=== PATIENT | male | born 2005 | race Asian ===

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

== ENCOUNTER 2024-05-05 10:09 | Emergency (ER) | payer OTHER, SELFPAY ==
[2024-05-05 10:18] VITALS: BP 125/79; PULSE 80; RESP 14; TEMP 37.2; O2SAT 97; BMI 25.8
--- NOTE | 2024-05-05 11:07 | XR_ITS ---
Patient: ZHANG CEVALLOS Facility:?[facility] Patient ID:?[id number] Site Patient ID:?[id number]. Site :?[id number] Study:?XRay-Chest 2 VIEWS-05/05/2024 11:22:56 AM Ordering Physician:?LUCIANO VAZ Final Report: INDICATION: Persistent cough, difficulty breathing. TECHNIQUE: Chest 2 views. COMPARISON: X-ray chest July 2023 FINDINGS/ IMPRESSION: No acute cardiopulmonary process. No focal consolidation, effusion, pneumothorax. Cardiac size is within normal limit without pulmonary edema. No acute osseous findings. Dictated by Gisele Carmona MD @ 05/05/2024 11:45:05 AM Signed by:?Gisele Carmona MD @05/05/2024 11:45:05 AM (Electronic Signature)
[2024-05-05 11:08] LABS: PCR FLU A Negative PCR FLU A (Negative); PCR FLU B Negative PCR FLU B (Negative); PCR RSV Negative PCR RSV (Negative); SARS PCR* Negative SARS-CoV-2 (Negative)
--- NOTE | 2024-05-05 11:41 | ED.GENADULT ---
HPI - General Adult General Time Seen by Provider: 11:41 Date Seen: 05/05/24 Chief complaint: Cough Stated complaint: shortness of breath/cough Time Seen by Provider: 05/05/24 11:30 Source: patient and RN notes reviewed Mode of arrival: ambulatory Limitations: no limitations History of Present Illness HPI narrative: This patient is coming in with concern of coughing and sinus issues. This has been ongoing since he came to college in February. He has been using albuterol, Symbicort, Flonase, budesonide nasal rinses, nasal rinses, oral antihistamines. He has had prednisone twice, he was on amoxicillin and he felt his sinuses did clear while he was on the amoxicillin. He feels like he has not been able to breathe through his nose, is getting postnasal drainage. He has basically had chronic symptoms since coming up to college. He does have a history of seasonal allergies, they did attempt to do immune therapy and he had anaphylaxis twice. He ended up quitting the therapy due to the anaphylaxis. He has a dry a chronic cough, feels like the cough is maybe a little worse than the sinuses at this time. No definite acute worsening or evidence of new definite illness. He has had a history of a sinus surgery before. His history does state that he has asthma but he relays that when they do the pulmonary function testing he is normal but notes that he gets significant chest symptoms whenever he gets ill. Related Data Home Medications ?Medication ?Instructions ?Recorded ?Confirmed albuterol 90 mcg/actuation aerosol mcg inhalation 03/27/23 05/07/24 inhaler azelastine 137 mcg (0.1 %) nasal 137 mcg intranasal BID 03/27/23 05/07/24 spray budesonide-formoterol HFA 80 1 inh inhalation BID 03/27/23 05/07/24 mcg-4.5 mcg/actuation aerosol inhaler (Breyna) fluticasone propionate 50 1 spray intranasal DAILY PRN 03/27/23 05/07/24 mcg/actuation nasal spray,suspension (24 Hour Allergy Relief) Previous Rx's ?Medication ?Instructions ?Recorded azithromycin 250 mg tablet See Rx Instructions PO .COMPLEX #6 05/05/24 tabs codeine 10 mg-guaifenesin 100 mg/5 5 ml PO HS PRN #120 mL 05/05/24 mL oral liquid amoxicillin 875 mg-potassium 1 tab PO BID #20 tabs 05/07/24 clavulanate 125 mg tablet Allergies Allergy/AdvReac Type Severity Reaction Status Date / Time No Known Drug Allergies Allergy Verified 05/07/24 14:21 Review of Systems Status of ROS: Reports: 6 or more systems reviewed and unremarkable except as noted in History and below [facility] Medical History COVID-19 ?U07.1 - COVID-19 (ICD-10) Social History Smoking Status: Never smoker Do you use any of these nicotine containing products: None Second hand tobacco smoke exposure: No How often do you have a drink containing alcohol: never How often do you have six or more drinks on one occasion: Never AUDIT-C Alcohol total score: 0 Non-prescribed substance use: denies use service: No Exam Const: Vital Signs, click to edit/add: Vital Signs - 24 hr 05/05/24 10:18 Temperature 98.9 F Pulse Rate [Pulse Oximeter] 80 Respiratory Rate 14 Blood Pressure [Ri ght Upper Arm] 125/79 Pulse Oximetry 97 Oxygen Delivery Me thod Room Air This 19-year-old male is alert, interactive, no apparent distress. He does have intermittent harsh sound in dry cough. He is able to speak in complete sentences, voice is normal. Pupils equal round, sclera clear. TMs canals the out hemotympanum, no evidence of infection, normal translucent membranes. Anterior nares appear normal, does look like septum maybe more rightward. The nasal mucosa does not look to have any significant abnormalities to me. Oropharynx normal. No X supple, no adenopathy. Lungs are clear, no wheezing or crackles, no tachypnea, seems to have normal breath sounds. CV regular rate and rhythm, no murmur. Documenting provider has reviewed patient's vital signs: yes Course Course ED Course: Patient had a triple viral swab collected by nursing staff on arrival, chest x-ray has been done, it is awaiting radiology over read to rule out pneumonia. On my preliminary review I do not see any evidence of acute infection. Have discussed with this patient given his symptoms EM and he did bring up seen ENT, would consider doing sinus CT to rule out underlying sinus pathology. Would like to proceed with that I think it is reasonable. Rather than just giving further antibiotics and steroids, I do think we need to try to figure out exactly what is wrong with him. Reevaluation(s) Time of Reevaluation #1: 13:19 Reevaluation #1: Have reviewed his CT of his sinuses, his normal chest x-ray, negative triple viral swab. He just came off prednisone yesterday, did not feel like it really helped. He felt like his sinuses did better while he was on antibiotics. His cough is maybe bothering him more now than anything, not sleeping. He would like to see ENT, he has had teammates that of seen our ENT and have helped them. I will provide that phone number for him to contact. Patient does describe some chronic symptoms, reviewed that were really out of treatment realm for chronic pulmonary and sinus symptoms. He may need to go back to pulmonology. Sometimes patients can just get some post inflammatory cough. We did bring up pertusses, he would like to treat for this and test. His lungs are clear, he does just have this harsh cough that comes back intermittently, sounds dry. We can do pertusses testing, treat with Z-Aiden, send some Robitussin with codeine to help him with sleep. We went over risks benefits and side effects of this medicine as well as contraindications to alcohol and other substance use will using. Vital Signs Vital signs: Initial Vital Signs Temperature 98.9 F 05/05/24 10:18 Temperature Source Temporal Artery Scan 05/05/24 10:18 Pulse Rate 80 05/05/24 10:18 Pulse Rhythm Regular 05/05/24 10:18 Respiratory Rate 14 05/05/24 10:18 Blood Pressure 125/79 05/05/24 10:18 Blood Pressure Mean 94 05/05/24 10:18 Blood Pressure Position Sitting 05/05/24 10:18 Pulse Oximetry 97 05/05/24 10:18 Oxygen Delivery Method Room Air 05/05/24 10:18 Vital Signs Temperature 98.9 F 05/05/24 10:18 Pulse Rate 80 05/05/24 10:18 Respiratory Rate 14 05/05/24 10:18 Blood Pressure 125/79 05/05/24 10:18 Pulse Oximetry 97 05/05/24 10:18 Oxygen Delivery Method Room Air 05/05/24 10:18 Temperature 98.9 F 05/05/24 10:18 Pulse Rate 80 05/05/24 10:18 Respiratory Rate 14 05/05/24 10:18 Blood Pressure 125/79 05/05/24 10:18 Pulse Oximetry 97 05/05/24 10:18 Oxygen Delivery Method Room Air 05/05/24 10:18 Medical Decision Making Lab Data Lab results reviewed: Yes I reviewed the patient's lab results Labs: Lab Results 05/05/24 Range/Units 10:25 SARS-CoV-2 (PCR) Negative SARS-CoV-2 (Negative) Influenza Type A (PCR) Negative PCR FLU A (Negative) Influenza Type B (PCR) Negative PCR FLU B (Negative) RSV (PCR) Negative PCR RSV (Negative) Imaging Data CT- Other: Attestation: I have reviewed the pertinent imaging results. Radiologist's impression: Patient: ZHANG CEVALLOS Facility:?[facility] Patient ID:?[id number] Site Patient ID:?[id number]. Site :?2004 Study:?CT-Sinus W/O-05/05/2024 12:07:01 PM Ordering Physician:?Harshal Agrawal Final Report: Indication: Months of sinus drainage and coughing. Technique: CT examination of the paranasal sinuses was performed. Imaging was acquired in the axial plane. Contrast is not administered. Sagittal and coronal reformatted imaging was performed. Imaging was acquired from above the frontal sinuses through below the hard palate. Comparison: None Findings: No bone destruction or expansion. The ethmoid air cells and middle ear cavity appear normal. The frontal sinuses normal. The sphenoid sinuses normal. Scant mucosal thickening of the ethmoid air cells indicating minimal chronic mucosal inflammatory disease. Small lobular focal areas of mucosal thickening at the inferior aspect of both maxillary sinuses probably small mucosal retention cysts or minimal chronic mucosal inflammatory disease. Patent ostiomeatal units. Minimal rightward septal deviation. No definite soft tissue abnormality identified involving the oropharynx, nasopharynx or nasal cavity. Impression: Scant mucosal thickening of the ethmoid air cells indicating minimal chronic mucosal inflammatory disease. Small lobular focal areas of mucosal thickening at the inferior aspect of both maxillary sinuses probably small mucosal retention cysts or minimal chronic mucosal inflammatory disease. No bone destruction, expansion or mucoperiosteal thickening. Minimal rightward nasal septal deviation Please note that all CT scans at this facility use dose modulation, iterative reconstruction, and/or weight-based dosing when appropriate to reduce radiation dose to as low as reasonably achievable. Dictated by Gokul Metcalf MD @ 05/05/2024 12:28:52 PM (Electronic Signature) Chest x-ray: Attestation: I have reviewed the pertinent imaging results. My impression: I see no acute pathology on preliminary review. Radiologist's impression: Patient: ZHANG CEVALLOS Facility:?[facility] Patient ID:?[id number] Site Patient ID:?[id number]. Site :?2004 Study:?XRay-Chest 2 VIEWS-05/05/2024 11:22:56 AM Ordering Physician:?PROVIDER TEMP Final Report: INDICATION: Persistent cough, difficulty breathing. TECHNIQUE: Chest 2 views. COMPARISON: X-ray chest July 2023 FINDINGS/ IMPRESSION: No acute cardiopulmonary process. No focal consolidation, effusion, pneumothorax. Cardiac size is within normal limit without pulmonary edema. No acute osseous findings. Dictated by Gisele Carmona MD @ 05/05/2024 11:45:05 AM (Electronic Signature) Discharge Plan Discharge Clinical Impression: Sinus congestion Cough Qualifiers: Cough type: subacute Qualified Code(s): R05.2 - Subacute cough Patient Disposition: Home, Self-Care Condition: Stable Instructions: Asthma (ED), Acute Cough (ED) Additional Instructions: I highly recommend you stay on your inhaled steroid, try albuterol per prescription. Do recommend ongoing use of nasal steroid like Flonase, daily medicine like Zyrtec or Macrina to help minimize allergic component. Please call Dr. Sanon's office at [phone] to get scheduled for follow-up. We will try a Z-Aiden which would cover pertussis/whipping cough. Have written for some Robitussin with codeine to be used at bedtime only to allow you to sleep. Can try DayQuil during the day. Activity Level: Activity as Tolerated Prescriptions: New azithromycin 250 mg tablet See Rx Instructions .ROUTE .COMPLEX Qty: 6 0RF Rx Instructions: For 250 mg dose pack: take 500 mg today (day 1), then 250 mg for 4 days (days 2-5) codeine-guaifenesin 10-100 mg/5 mL liquid 5 ml PO HS PRNQty: 120 0RF No Action amoxicillin-pot clavulanate 875-125 mg tablet 1 tab PO BID Qty: 20 1RF fluticasone propionate [24 Hour Allergy Relief] 50 mcg/actuation spray,suspension 1 spray intranasal DAILY PRN Rx Instructions: administer into each nostril budesonide-formoterol [Breyna] 80-4.5 mcg/actuation HFA aerosol inhaler 1 inh inhalation BID albuterol 90 mcg/actuation aerosol inhalation azelastine 137 mcg (0.1 %) aerosol,spray 137 mcg intranasal BID Rx Instructions: administer into each nostril Follow Up/Referrals: Provider,Not a Local [Primary Care Provider] - Stand Alone Forms: [place] [employer] Info Instructions
--- NOTE | 2024-05-05 11:52 | CRLHL7_ITS ---
For Patients: As a result of the Century Cures Act, medical imaging exams and procedure reports are released immediately into your electronic medical record. You may view this report before your referring provider. If you have questions, please contact your health care provider. Indication: Months of sinus drainage and coughing. Technique: CT examination of the paranasal sinuses was performed. Imaging was acquired in the axial plane. Contrast is not administered. Sagittal and coronal reformatted imaging was performed. Imaging was acquired from above the frontal sinuses through below the hard palate. Comparison: None Findings: No bone destruction or expansion. The ethmoid air cells and middle ear cavity appear normal. The frontal sinuses normal. The sphenoid sinuses normal. Scant mucosal thickening of the ethmoid air cells indicating minimal chronic mucosal inflammatory disease. Small lobular focal areas of mucosal thickening at the inferior aspect of both maxillary sinuses probably small mucosal retention cysts or minimal chronic mucosal inflammatory disease. Patent ostiomeatal units. Minimal rightward septal deviation. No definite soft tissue abnormality identified involving the oropharynx, nasopharynx or nasal cavity. Impression: Scant mucosal thickening of the ethmoid air cells indicating minimal chronic mucosal inflammatory disease. Small lobular focal areas of mucosal thickening at the inferior aspect of both maxillary sinuses probably small mucosal retention cysts or minimal chronic mucosal inflammatory disease. No bone destruction, expansion or mucoperiosteal thickening. Minimal rightward nasal septal deviation Please note that all CT scans at this facility use dose modulation, iterative reconstruction, and/or weight-based dosing when appropriate to reduce radiation dose to as low as reasonably achievable. Dictated by Gokul Metcalf MD @ 05/05/2024 12:28:52 PM (Electronically Signed)
[2024-05-08 19:16] LABS: B. pertussis/parapertus Source Not Provided; Bordetella parapertussis PCR Not Detected; Bordetella pertussis by PCR Detected
== END 2024-05-05 13:54 | disposition home or self-care (01) ==
PROVIDERS: Emergency Provider Family Medicine
DX: J01.80 Other acute sinusitis (principal); R05.2 Subacute cough
CPT/HCPCS: 36415; 70486; 71046; 87631; 99283; 99284

== ENCOUNTER 2024-06-27 08:17 | Day surgery (SDC) | payer OTHER, SELFPAY ==
[2024-06-27] VITALS (14 sets, daily range): BP systolic 117–142; BP diastolic 71–91; PULSE 87–97; RESP 16; TEMP 37.4–37.6; O2SAT 91–97; BMI 26.5
--- OUTSIDE RECORDS SUMMARY | 2024-06-27 08:21 | XMS_ITS | Encounter Summary ---
Author Organization [facility] Address [address] [place] [address] Care Team Providers Care Support Coordinator Name Role Phone Christal Rico APRN Primary Care Provider Reason for Visit * Reason Onset Date Comments Med PA 07/19/2022 Encounter Details Date Type Department Care Team (Late st Contact Info) Description 07/19/2022 Documentation Encounter [facility] Pediatric Allergies - Medical [place] [phone] Carolyn Lam MD Med PA Social History Tobacco Use Types Packs/Day Years Used Date Smoking Tobacco: Never Smokeless Tobacco: Never Alcohol Use Standard Drinks/Week Comments No 0 (1 standard drink = 0.6 oz pur e alcohol) PHQ-2 Risk Classification Answer Date R ecorded Patient Health Questionnaire-9 Score 1 07/07/2022 PHQ-9 Risk Classification Answer Date R ecorded Patient Health Questionnaire-9 Score 1 07/07/2022 Sex and Gender Information Value Date Recorded Sex Assigned at Not on file Gender Identity Not on file Sexual Orientation Not on file documented as of this encounter Plan of Treatment Upcoming Encounters Date Type Department Care Team (Late st Contact Info) Description 09/24/2024 8:30 AM EDT Office Visit [facility] ENT and Allergy - [address] [phone] Alireza Torres MD [address] [place] [address] Kamlesh Eubanks MD [address] [place] [address] [id number] [place] [phone] documented as of this encounter Visit Diagnoses Not on filedocumented in this encounter Additional Health Concerns Infection Onset Date Last Indicated Resolved Time COVID-19 Rule-Out 01/29/2023 01/29/2023 01/29/2023 7:19 PM EDT documented as of this encounter Care Teams Support Coordinator Relationship Specialty Start Date End Date Christal Rico APRN [address] [place] [address] [place] [address] PCP - General Pediatrics 10/11/22 documented as of this encounter
--- OUTSIDE RECORDS SUMMARY | 2024-06-27 08:21 | XMS_ITS | Encounter Summary ---
Author Organization [facility] Address [address] [place] [address] Care Team Providers Care Paid Search Manager Name Role Phone Christal Rico APRN Primary Care Provider Reason for Visit * Reason Comments Med Change Request Encounter Details Date Type Department Care Team (Late Contact Info) Description 06/20/2024 Refill [facility] Pediatric Pulmonary - Medical [place] [phone] Alireza Torres MD [address] [facility] [address] [place], [place] [id number] Med Change Request Social History Tobacco Use Types Packs/Day Years Used Date Smoking Tobacco: Never Smokeless Tobacco: Never Alcohol Use Standard Drinks/Week Comments No 0 (1 standard drink = 0.6 oz pur e alcohol) PHQ-2 Risk Classification Answer Date R ecorded Patient Health Questionnaire-2 Score 0 06/20/2024 PHQ-9 Risk Classification Answer Date R ecorded Patient Health Questionnaire-9 Score 1 07/07/2022 Sex and Gender Information Value Date Recorded Sex Assigned at Not on file Gender Identity Not on file Sexual Orientation Not on file documented as of this encounter Plan of Treatment Upcoming Encounters Date Type Department Care Team (Late Contact Info) Description 09/24/2024 8:30 AM EDT Office Visit [facility] ENT and Allergy - [address] [phone] Alireza Torres MD [id number] [place] [phone] Kamlesh Eubanks MD [address] [facility] [facility] [address] [place] [id number] documented as of this encounter Visit Diagnoses Not on filedocumented in this encounter Care Teams Paid Search Manager Relationship Specialty Start Date End Date Christal Rico APRN [address] [place] [address] [place] [address] PCP - General Pediatrics 10/11/22 documented as of this encounter
--- OUTSIDE RECORDS SUMMARY | 2024-06-27 08:21 | XMS_ITS | Referral Summary ---
Author Organization [facility] Address [address] [place] [address] Care Team Providers Care Transportation Attendant Name Role Phone Christal Rico APRN Primary Care Provider Encounters Date Type Department Care Team Description 06/20/2024 Refill [facility] - [place] [phone] Alireza Torres MD Med Change Request 06/20/2024 9:40 AM EST - 06/20/2024 11:59 PM EST Hospital Encounter PULMONARY FUNCTION PED [address] [place] [address] Alireza Torres MD Moderate persistent asthma, uncomplicated Discharge Disposition: Discharge to Home or Self Care 06/20/2024 9:42 AM EST - 06/20/2024 11:59 PM EST Hospital Encounter PULMONARY FUNCTION PED [address] [place] [phone] Alireza Torres MD Moderate persistent asthma, uncomplicated Discharge Disposition: Discharge to Home or Self Care 06/20/2024 11:00 AM EST Office Visit [facility] Pulmonary - [facility] [place] [phone] Alireza Torres MD Moderate persistent asthma, uncomplicated 05/03/2024 Orders Only [facility] Pediatric Pulmonary - [place] [place] [address] Alireza Torres MD Sinus disease from Last 3 Months Allergies Active Allergy Reactions Criticality Noted Date Comments Other Itching High 12/14/2022 Allergy shot ghiven todaty Medications Medication Sig Dispensed Refills Start Date End Date Status ipratropium (ATROVENT) 0.06 % Nasal Solution 2 (two) sprays by Nasal route 3 times daily as needed for rhinitis. 15 mL 2 3 Active Additional Information Patient not taking.Reported on 10/10/2022 azelastine (ASTELIN) 0.1 % Nasal Solution 2 (two) sprays by Nasal route 2 times daily. Use in each nostril as directed 30 mL 6 3 Active Additional Information Patient not taking.Reported on 12/11/2023 fluticasone (FLONASE) 50 MCG/ACT Nasal Suspension 1 (one) spray by Nasal route daily. 10 mL 6 3 Active cetirizine (ZyrTEC) 10 MG Oral Tablet Take 1 (one) tablet by mouth daily. 30 tablet 6 3 Active EPINEPHrine 0.3 MG/0.3ML Injection Solution Auto-injector Inject 0.3 mLs into the muscle as needed (prn). 2 each 1 3 Active Ventolin HFA 108 (90 Base) MCG/ACT Inhalation Aerosol Solution Inhale 2 (two) puffs to 4 (four) puffs every 4 hours as needed for wheezing, shortness of breath or cough. 8.5 g 1 4 Active montelukast (SINGULAIR) 10 MG Oral Tablet Take 1 (one) tablet by mouth daily. 30 tablet 11 4 Active Additional Information Patient not taking.Reported on 06/20/2024 budesonide-form oterol (SYMBICORT) 80-4.5 MCG/ACT Inhalation Aerosol Inhale 2 (two) puffs 2 times daily. Rinse mouth well and spit after each use. 10.2 g 6 5 Active predniSONE (DELTASONE) 20 MG Oral Tablet Take 1.5 (one and one-half) tablets by mouth daily for 5 days. 8 tablet 5 Active benzonatate (TESSALON) 100 MG Oral Capsule Take 1 (one) capsule by mouth 3 times daily as needed for cough. 30 capsule 5 06/30/19 25 Active albuterol 108 (90 Base) MCG/ACT Inhalation Aerosol Solution Inhale 2 (two) puffs to 4 (four) puffs every 4 hours as needed for wheezing, shortness of breath or cough. 12.5 g 5 Active azithromycin (ZITHROMAX) 250 MG Oral Tablet Take 2 tablets (500 mg) by mouth on Day 1, followed by 1 tablet (250 mg) once daily by mouth on Days 2 through 5. 6 tablet 5 Active predniSONE (DELTASONE) 20 MG Oral Tablet Take 1 (one) tablet by mouth daily. 10 tablet 3 06/20/19 25 Discontinued(Reo rder) Flovent HFA 110 MCG/ACT Inhalation Aerosol INHALE 2 PUFFS TWICE A DAY . RINSE MOUTH WELL AND SPIT AFTER EACH USE 12 g 3 3 06/20/19 25 Discontinued budesonide-form oterol (SYMBICORT) 80-4.5 MCG/ACT Inhalation Aerosol Inhale 2 (two) puffs 2 times daily. Rinse mouth well and spit after each use. 10.2 g 6 4 06/20/19 25 Discontinued(Reo rder) Ventolin HFA 108 (90 Base) MCG/ACT Inhalation Aerosol Solution Inhale 2 (two) puffs to 4 (four) puffs every 4 hours as needed for wheezing. 18 g 1 5 06/24/19 25 Discontinued Active Problems Problem Noted Date Diagnosed Date Psychological trauma 12/18/2019 Seasonal allergies 09/02/2018 Acne vulgaris 07/26/2018 Abnormal vision screen 12/11/2017 Mild depression (CMS-HCC: 59) 09/30/2015 Resolved Problems Problem Noted Date Diagnosed Date Resolved Date Closed fracture of distal en d of right fibula and tibia, with routine healing, subsequent encounter 04/12/2017 12/10/2017 Closed fracture of distal en d of right fibula and tibia 01/26/2017 12/10/2017 Anxiety 10/12/2015 12/10/2017 Acanthosis nigricans 08/28/2015 018 Post concussive syndrome 04/30/2015 Neck pain 04/30/2015 12/10/2017 Cough 09/25/2014 12/10/2017 Immunizations Name Administration Dates Next Due ADACEL, BOOSTRIX, Tdap Vacci ne, (7 yo and older), IM (OLU=994) 09/29/2015 AFLURIA / FLUARIX / FLULAVAL / FLUZONE (6M & OLDER) 0.5 ML IM SYR 05/13/2022,03/18/2020,03/20/2019,03/19,03/20/2017 BEXSERO, Meningococcal Group B (OMV) Vaccine (JOW=827) 01/04/2022,01/03/2021 DTaP-IPV vaccine (4-6 y.o.), KINRIX IM (XWD=690) 12/11/2008 Flu Vaccine (0.5 mL), 6 mo a nd older, FLUARIX/FLULAVAL, Pre-filled syr, IM 09/29/2015 Flu Vaccine, Trivalent (w/pr eserv) (HISTORICAL) (BWU=894) 03/30/2005 Flu vaccine (3yo & older) TR IV, PF, 0.5 mL, IM, Pre-Filled Syringe (XGC=510) 03/30/2015,04/09/2014,05/02/2011,03/18,05/09/2005 HPV 9-Valent Vaccine (9vHPV) , (GARDASIL 9) IM (WUI=176) 01/03/2021,08/26/2020,12/17/2019 Hepatitis A, Peds/Adol, 2 Dose (CVX=83) 01/10/20,01/04/2022 Influenza H1N1, IM (DDC=130) 05/22/2009 MENACTRA, Meningococcal Poly saccharide (A,C,Y,W) Vaccine (BAZ=866) 09/29/2015 MENVEO, Meningococcal Oligos accharide (A,C,Y,W) Vaccine (ENZ=607) 01/03/2021 MMR (Measles, Mumps & Rubell a) vaccine (M-M-R II) Subcutaneous (CVX=03) 12/11/2008,05/09/2005 PCV13 / PREVNAR 13 (6W & OLD ER) 0.5 ML IM SYR 03/16/2005,2004,2004,04/19 PCV7 (Pneumococcal Conjugate 7) (IHK=242) 03/16/2005,2004,2004,04/19 PEDIARIX (6W - 6Y) 0.5 ML IM SYR 2004,06/19,2004 PEDVAXHIB (6W & OLDER) 0.5 ML IM VIAL 05/09/2005 ,2004,2004 VARICELLA (CHICKENPOX) (CVX=21) 12/11/2008,03/16 Vaccine Group INFLUENZA 03/20/2019,03/20/2017, Social History Tobacco Use Types Packs/Day Years Used Date Smoking Tobacco: Never Smokeless Tobacco: Never Tobacco Cessation:Counseling Given: Not Answered Alcohol Use Standard Drinks/Week Comments No 0 [...] on file Sexual Orientation Not on file Last Filed Vital Signs Vital Sign Reading Time Taken Comments Blood Pressure 127/71 01/29/2023 12:47 PM EDT Pulse 61 06/20/2024 9:58 AM EST Temperature 36.4 C (97.5 F) 06/20/2024 9:58 AM EST Respiratory Rate 16 06/20/2024 9:58 AM EST Oxygen Saturation 99% 12/11/2023 8:13 AM EDT Inhaled Oxygen Concentration - - Weight 77.6 kg (171 lb 1.2 oz) 06/20/2024 9:58 A M EST Height 170.6 cm (5' 7.15) 06/20/2024 9:58 AM ES T Body Mass Index 26.67 06/20/2024 9:58 AM EST Plan of Treatment Upcoming Encounters Date Type Department Care Team (Late st Contact Info) Description 09/24/2024 8:30 AM EDT Office Visit [facility] [address] [address] Alireza Torres MD [address] [facility] [address] [place] [address] Kamlesh Eubanks MD [address] [facility] [address] [place] [address] Procedures Procedure Name Priority Date/Time Associated Diagnosis Comments SPIROMETRY PRE/POST BRONCHODILATOR Routine 06/20/2024 10:38 AM EST Moderate persistent asthma, uncomplicated HIV 1/2 ANTIGEN/ANTIBODY,FOURT H GENERATION WITH REFLEXES Routine 05/13/2022 9:29 PM EST from Last 3 Months or Most Recently Relevant to Health Maintenance Results * HIV 1/2 ANTIGEN/ANTIBODY,4TH GEN W/REFLX (05/13/2022 9:29 PM EST) HIV Interpretation Negative 2021 10:31 PM EST [facility] Blood Venipuncture / Unknown 05/13/2022 9:29 PM EST 05/13/2022 9:46 PM EST Anthony Flynn MD BLOOD ORDERAB LES [facility] [address] [place] [address] from Last 3 Months or Most Recently Relevant to Health Maintenance Care Teams Transportation Attendant Relationship Specialty Start Date End Date Christal Rico APRN [address] [place] [address] [place] [address] PCP - General Pediatrics 10/11/22
--- OUTSIDE RECORDS SUMMARY | 2024-06-27 08:21 | XMS_ITS | Encounter Summary ---
Author Organization Health Address [address] [place] [address] Care Team Providers Care Industrial Electrical Engineer Name Role Phone Christal Rico APRN Primary Care Provider Reason for Referral * Referral - Closed Specialty Diagnoses / Procedures Referred By Han coker Referred To Contact Diagnoses Moderate persistent asthma, uncomplicated Procedures Spirometry Pre/Post Bronchodilator (PFT18) Alireza Torres MD [address] [place] [address] Referral ID Status Reason Start Date Expiration Date Visits Re quested Visits Authorized [id number] Closed 12/11/2023 12/10/2024 1 1 Reason for Visit * Referral - Closed Specialty Diagnoses / Procedures Referred By Han coker Referred To Contact Diagnoses Moderate persistent asthma, uncomplicated Procedures Spirometry Pre/Post Bronchodilator (PFT18) Alireza Torres MD [address] [facility] [address] [place], [place] [id number] Referral ID Status Reason Start Date Expiration Date Visits Re quested Visits Authorized [id number] Closed 12/11/2023 12/10/2024 1 1 Encounter Details Date Type Department Care Team (Latest Contact Info) Description 06/20/2024 9:42 AM EST - 06/20/2024 11:59 PM EST Hospital Encounter PULMONARY FUNCTION PED [address] [place] [address] Alireza Torres MD [address] [facility] [address] [place] [address] Moderate persistent asthma, uncomplicated Discharge Disposition: Discharge to Home or Self Care Social History Tobacco Use Types Packs/Day Years [...] on file documented as of this encounter Medications at Time of Discharge Medication Sig Dispensed Refills Start Date End Date albuterol 108 (90 Base) MCG/ACT Inhalation Aerosol Solution Inhale 2 (two) puffs to 4 (four) puffs every 4 hours as needed for wheezing, shortness of breath or cough. 12.5 g 06/24/2024 azelastine (ASTELIN) 0.1 % Nasal Solution 2 (two) sprays by Nasal route 2 times daily. Use in each nostril as directed 30 mL 6 10/10/2022 azithromycin (ZITHROMAX) 250 MG Oral Tablet Take 2 tablets (500 mg) by mouth on Day 1, followed by 1 tablet (250 mg) once daily by mouth on Days 2 through 5. 6 tablet 06/20/2024 benzonatate (TESSALON) 100 MG Oral Capsule Take 1 (one) capsule by mouth 3 times daily as needed for cough. 30 capsule 06/20/2024 06/30/2024 budesonide-formoterol (SYMBICORT) 80-4.5 MCG/ACT Inhalation Aerosol Inhale 2 (two) puffs 2 times daily. Rinse mouth well and spit after each use. 10.2 g 6 06/20/2024 cetirizine (ZyrTEC) 10 MG Oral Tablet Take 1 (one) tablet by mouth daily. 30 tablet 6 10/10/2022 EPINEPHrine 0.3 MG/0.3ML Injection Solution Auto-injector Inject 0.3 mLs into the muscle as needed (prn). 2 each 1 12/18/2022 fluticasone (FLONASE) 50 MCG/ACT Nasal Suspension 1 (one) spray by Nasal route daily. 10 mL 6 10/10/2022 ipratropium (ATROVENT) 0.06 % Nasal Solution 2 (two) sprays by Nasal route 3 times daily as needed for rhinitis. 15 mL 2 07/12/2022 montelukast (SINGULAIR) 10 MG Oral Tablet Take 1 (one) tablet by mouth daily. 30 tablet 11 02/18/2024 predniSONE (DELTASONE) 20 MG Oral Tablet Take 1.5 (one and one-half) tablets by mouth daily for 5 days. 8 tablet 06/20/2024 Ventolin HFA 108 (90 Base) MCG/ACT Inhalation Aerosol Solution Inhale 2 (two) puffs to 4 (four) puffs every 4 hours as needed for wheezing, shortness of breath or cough. 8.5 g 1 12/11/2023 Ventolin HFA 108 (90 Base) MCG/ACT Inhalation Aerosol Solution Inhale 2 (two) puffs to 4 (four) puffs every 4 hours as needed for wheezing. 18 g 1 06/20/2024 06/24/2024 documented as of this encounter Plan of Treatment Upcoming Encounters Date Type Department Care Team (Late st Contact Info) Description 09/24/2024 8:30 AM EDT Office Visit [facility] ENT and Allergy - [address] [phone] Alireza Torres MD [address] [facility] [id number] [place] [address] Kamlesh [place] MD [address] [facility] [id number] [place] [address] Pending Results Name Type Priority Associated Diagnoses Date /Time Spirometry Pre/Post Bronchodilator (PFT18) PFT Routine Moderate persistent asthma, uncomplicated 06/20/2024 10:38 AM EST documented as of this encounter Procedures Procedure Name Priority Date/Time Associated Diagnosis Comments SPIROMETRY PRE/POST BRONCHODILATOR Routine 06/20/2024 10:38 AM EST Moderate persistent asthma, uncomplicated documented in this encounter Visit Diagnoses Diagnosis Moderate persistent asthma, uncomplicated Unspecified asthma documented in this encounter Care Teams Industrial Electrical Engineer Relationship Specialty Start Date End Date Christal Rico APRN [address] [place] [address] PCP - General Pediatrics 10/11/22 documented as of this encounter
--- OUTSIDE RECORDS SUMMARY | 2024-06-27 08:21 | XMS_ITS | Clinical Summary ---
Author Organization [facility] [employer] Address [address] [place] [address] Care Team Providers Care Chief Creative Officer Name Role Phone No, Pcp GENERAL MANAGER ORACLE DATA CLOUD Primary Care Provider Unavailabl e Social History Tobacco Use Types Packs/Day Years Used Date Smoking Tobacco: Never Assessed Sex and Gender Information Value Date Recorded Sex Assigned at Not on file Legal Sex Male 12:21 PM EST Gender Identity Not on file Sexual Orientation Not on file Plan of Treatment Health Maintenance Due Date Last Done Comments Depression: Screening Annual ly using PHQ-2/9 in Adults 18 yrs or above (or HM Modifier)([facility]) 2022 Hepatitis C Virus Infection in Adolescents and Adults: Screening (or Modifier) ([facility]) 2022 SDOH Screening Reminder: Mary grant for all adults ([facility]) 2022 Tobacco Smoking Cessation: i n Adults excluding Women: Behavioral and Pharmacotherapy Interventions ([facility]) 2022 DTaP/Tdap/Td Vaccines ([facility]) (1 - Tdap) 2023 Flu Vaccination: Yearly for ages 18mos through 64 years (or Modifier)([facility]) 01/17/2024 COVID-19 Vaccine Screening: Initial Series and Booster Status ([facility]) ( - 2023- season) 2024 Lipid Screening: Once for Me n aged 20 to 35 yrs ([facility]) 2024 Zoster/Shingles Vaccine Seri es Screening: Adults aged 18+ yrs (or HM Modifiers)([facility]) (1 of 2) 2054 Pneumococcal Vaccination Scr eening: Pts 0-19 & 19-64 yrs of age ([facility]) Aged Out No longer eligible based on patient's age to complete this topic Medical Devices Not on file Insurance [facility] Care Teams Chief Creative Officer Relationship Specialty Start Date End Date No, Pcp, GENERAL MANAGER ORACLE DATA CLOUD N/A Do not use PCP - General Family Medicine 06/27/20
--- OUTSIDE RECORDS SUMMARY | 2024-06-27 08:21 | XMS_ITS | Encounter Summary ---
Author Organization [facility] Address [address] [place] [address] Care Team Providers Care Auto Hauler Name Role Phone Christal Rico HEAD OF PRODUCT Primary Care Provider Encounter Details Date Type Department Care Team (Late st Contact Info) Description 03/03/2019 Orders Only [facility] [address] [place] [phone] [facility] [address] [place], [place] [id number] Social History Tobacco Use Types Packs/Day Years Used Date Smoking Tobacco: Never Smokeless Tobacco: Never Alcohol Use Standard Drinks/Week Comments No 0 (1 standard drink = 0.6 oz pur e alcohol) Sex and Gender Information Value Date Recorded Sex Assigned at Not on file Gender Identity Not on file Sexual Orientation Not on file documented as of this encounter Plan of Treatment Upcoming Encounters Date Type Department Care Team (Late st Contact Info) Description 09/24/2024 8:30 AM EDT Office Visit [facility] ENT and Allergy - [address] [address] Alireza Torres MD [address] [facility] [address] [place] [address] Kamlesh [place] MD [address] [facility] [address] [place] [address] documented as of this encounter Visit Diagnoses Not on filedocumented in this encounter Additional Health Concerns Infection Onset Date Last Indicated Resolved Time COVID-19 Rule-Out 01/11/2021 01/11/2021 01/12/2021 7:42 PM EDT COVID-19 Rule-Out 06/21/2021 06/21/2021 06/21/2021 8:52 PM EST COVID-19 (Confirmed) 06/21/2021 06/21/2021 022 3:03 AM EST COVID-19 Rule-Out 02/01/2022 02/01/2022 02/02/2022 12:33 AM EDT COVID-19 Rule-Out 02/14/2022 02/14/2022 02/14/2022 7:47 PM EDT COVID-19 Rule-Out 04/01/2022 04/01/2022 04/01/2022 9:40 PM EDT COVID-19 Rule-Out 05/13/2022 05/13/2022 05/13/2022 8:29 PM EST COVID-19 Rule-Out 01/29/2023 01/29/2023 01/29/2023 7:19 PM EDT documented as of this encounter Care Teams Auto Hauler Relationship Specialty Start Date End Date Christal Rico APRN [address] [place] [address] PCP - General Pediatrics 10/11/22 documented as of this encounter
--- OUTSIDE RECORDS SUMMARY | 2024-06-27 08:21 | XMS_ITS | Encounter Summary ---
Author Organization Health Address [address] [place] [id number] Care Team Providers Care Process Project Engineer Name Role Phone Christal Rico APRN Primary Care Provider Reason for Visit * Referral - Closed Specialty Diagnoses / Procedures Referred By Han t Referred To Contact Diagnoses Moderate persistent asthma, uncomplicated Procedures Exhaled Nitric Oxide (FENO) Test (PFT58) Alireza Torres MD [address] [facility] [address] [place] [address] Referral ID Status Reason Start Date Expiration Date Visits Re quested Visits Authorized [id number] Closed 06/18/2024 06/18/2025 1 1 Encounter Details Date Type Department Care Team (Latest Contact Info) Description 06/20/2024 9:40 AM EST - 06/20/2024 11:59 PM [facility] Hospital Encounter PULMONARY FUNCTION PED [address] [facility] [address] [address] Alireza Torres MD [address] [facility] [address] [place], [place] [address] Moderate persistent asthma, uncomplicated Discharge Disposition: Discharge [...] Description 09/24/2024 8:30 AM EDT Office Visit [facility] ENT and Allergy - [address] [phone] Alireza Torres MD [address] [facility] [address] [place] [address] Kamlesh [place]anks MD [address] [facility] [address] [place] [address] documented as of this encounter Visit Diagnoses Diagnosis Moderate persistent asthma, uncomplicated Unspecified asthma documented in this encounter Care Teams Process Project Engineer Relationship Specialty Start Date End Date Christal Rico APRN [address] [address] [place] [id number] PCP - General Pediatrics 10/11/22 documented as of this encounter
--- OUTSIDE RECORDS SUMMARY | 2024-06-27 08:21 | XMS_ITS | Clinical Summary ---
Author Organization [facility] Address [address] [place] [address] Care Team Providers Care Project Program Manager Name Role Phone Christal Rico APRN Primary Care Provider Allergies Active Allergy Reactions Criticality Noted Date [...] Neck pain 04/30/2015 12/10/2017 Cough 09/25/2014 12/10/2017 Encounters Date Type Department Care Team Description 06/20/2024 11:00 AM EST Office Visit Count includes the [facility] Pulmonary - Medical [place] [address] Alireza Torres MD Moderate persistent asthma, uncomplicated 06/20/2024 9:42 AM EST - 06/20/2024 11:59 PM EST Hospital Encounter PULMONARY FUNCTION PED [address] [place] [address] Alireza Torres MD Moderate persistent asthma, uncomplicated Discharge Disposition: Discharge to Home or Self Care 06/20/2024 9:40 AM EST - 06/20/2024 11:59 PM EST Hospital Encounter PULMONARY FUNCTION PED [address] [place] [address] Alireza Torres MD Moderate persistent asthma, uncomplicated Discharge Disposition: Discharge to Home or Self Care 06/20/2024 Refill Count includes the [facility] Pulmonary - [facility] [place] [address] Alireza Torres MD Med Change Request 05/03/2024 Orders Only Count includes the [facility] Pulmonary - Medical [place] [address] Alireza Torres MD Sinus disease from Last 3 Months Immunizations Name Administration Dates Next Due ADACEL, BOOSTRIX, Tdap Vacci ne, (7 yo and older), IM (BGE=515) 09/29/2015 AFLURIA / FLUARIX / FLULAVAL / FLUZONE (6M & OLDER) 0.5 ML IM SYR 05/13/2022,03/18/2020,03/20/2019,03/19,03/20/2017 BEXSERO, Meningococcal Group B (OMV) Vaccine (MRU=885) 01/04/2022,01/03/2021 DTaP-IPV vaccine (4-6 y.o.), KINRIX IM (JYW=516) 12/11/2008 Flu Vaccine (0.5 mL), 6 mo a nd older, FLUARIX/FLULAVAL, Pre-filled syr, IM 09/29/2015 Flu Vaccine, Trivalent (w/pr eserv) (HISTORICAL) (XKF=546) 03/30/2005 Flu vaccine (3yo & older) TR IV, PF, 0.5 mL, IM, Pre-Filled Syringe (NZT=690) 03/30/2015,04/09/2014,05/02/2011,03/18,05/09/2005 HPV 9-Valent Vaccine (9vHPV) , (GARDASIL 9) IM (BXL=796) 01/03/2021,08/26/2020,12/17/2019 Hepatitis A, Peds/Adol, 2 Dose (CVX=83) 01/10/20,01/04/2022 Influenza H1N1, IM (WQG=596) 05/22/2009 MENACTRA, Meningococcal Poly saccharide (A,C,Y,W) Vaccine (LXR=039) 09/29/2015 MENVEO, Meningococcal Oligos accharide (A,C,Y,W) Vaccine (VUA=394) 01/03/2021 MMR (Measles, Mumps & Rubell a) vaccine (M-M-R II) Subcutaneous (CVX=03) 12/11/2008,05/09/2005 PCV13 / PREVNAR 13 (6W & OLD ER) 0.5 ML IM SYR 03/16/2005,2004,2004,04/19 PCV7 (Pneumococcal Conjugate 7) (JQI=946) 03/16/2005,2004,2004,04/19 PEDIARIX (6W - 6Y) 0.5 ML IM SYR 2004,06/19,2004 PEDVAXHIB (6W & OLDER) 0.5 ML IM VIAL 05/09/2005 ,2004,2004 VARICELLA (CHICKENPOX) (CVX=21) 12/11/2008,03/16 Vaccine Group INFLUENZA 03/20/2019,03/20/2017, Family History Medical History Relation Comments Allergic Rhinitis Father High Cholesterol Father Hypertension Father Allergic Rhinitis Mother High Blood Pressure Paternal Grandfather High Cholesterol Paternal Grandfather High Blood Pressure Paternal Grandmother High Cholesterol Paternal Grandmother Anesth Problems Neg Hx Bleeding Prob Neg Hx Relation Status Comments Brother Alive Father Alive Mother Alive Paternal Grandfather Paternal Grandmother Social History Tobacco Use Types Packs/Day Years [...] Description 09/24/2024 8:30 AM EDT Office Visit [facility] ENT and Allergy - The [address] [address] Alireza Torres MD [address] [facility] [address] [place] [address] Kamlesh Eubanks MD [address] [facility] [address] [place] [address] Health Maintenance Due Date Last Done Comments Hepatitis C Screening 2004 Pneumococcal Vaccine (0-5 yrs & At-Risk 6-49 yrs) (1 of 1 - PPSV23) 2010 03/16/2005, 03/16/2005, 2004, Additional history exists Preventive Wellness Visit 01/10/20242022, 01/04/2022, 01/03/2021, Additional history exists DTaP,Tdap,and Td Vaccines (6 - Td or Tdap) 09/28/2025 09/29/2015, 12/11/2008, 2004, Additional history exists Hepatitis B Vaccine Completed 2004, 2004, 2004 Pneumococcal Vaccine (50+ yrs) Discontinued 03/16/2005, 2004, 2004, Additional history exists HIB Vaccine Completed 05/09/2005, 06/19, 2004 MMR Vaccine Discontinued 12/11/2008, 05/09/2005 Polio Vaccine Completed 12/11/2008, 08/17, 2004, Additional history exists Varicella Vaccine Completed 12/11/2008, 03/16/2005 HPV Vaccine Completed 01/03/2021, 08/16, 12/17/2019 Meningococcal ACWY Completed 01/03/2021, 09/29/2015 USPSTF HIV Risk Assessment Completed 05/13/2022 Hepatitis A Vaccine Completed 01/09/2023, Influenza Vaccine Completed 03/08/2024, , 03/18/2020, Additional history exists SARS-CoV-2 (COVID-19) Completed 03/08/2024 , 06/14/2021, 10/20/2020, Additional history exists Rotavirus Vaccine Aged Out No longer eligible based on patient's age to complete this topic Procedures Procedure Name Priority Date/Time Associated Diagnosis Comments SPIROMETRY PRE/POST BRONCHODILATOR Routine 06/20/2024 10:38 AM EST Moderate persistent asthma, uncomplicated HIV 1/2 ANTIGEN/ANTIBODY,FOURT H GENERATION WITH REFLEXES Routine 05/13/2022 9:29 PM EST from Last 3 Months or Most Recently Relevant to Health Maintenance Results * HIV 1/2 ANTIGEN/ANTIBODY,4TH GEN W/REFLX (05/13/2022 9:29 PM EST) HIV Interpretation Negative 2021 10:31 PM EST [facility] Blood Venipuncture / Unknown 05/13/2022 9:29 PM EST 05/13/2022 9:46 PM EST Anthony Flynn MD BLOOD ORDERAB LES [facility] [address] [place] [phone] from Last 3 Months or Most Recently Relevant to Health Maintenance Care Teams Project Program Manager Relationship Specialty Start Date End Date Christal Rico APRN [address] [place] [address] [place] [address] PCP - General Pediatrics 10/11/22
--- OUTSIDE RECORDS SUMMARY | 2024-06-27 08:21 | XMS_ITS | Encounter Summary ---
Author Organization [facility] Address [address] [id number] Care Team Providers Care Balance Engineer Name Role Phone Christal Rico APRN Primary Care Provider Reason for Referral * Referral - Closed Specialty Diagnoses / Procedures Referred By Han coker Referred To Contact Diagnoses Moderate persistent asthma, uncomplicated Procedures Exhaled Nitric Oxide (FENO) Test (PFT58) Alireza Torres MD [address] [facility] [id number] [place], [place] [id number] Referral ID Status Reason Start Date Expiration Date Visits Re quested Visits Authorized [id number] Closed 06/18/2024 06/18/2025 1 1 * Referral - New Request Specialty Diagnoses / Procedures Referred By Han coker Referred To Contact Diagnoses Moderate persistent asthma, uncomplicated Procedures Spirometry Pre/Post Bronchodilator (PFT18) Alireza Torres MD [address] [facility] [id number] [place] [id number] Referral ID Status Reason Start Date Expiration Date V isits Requested Visits Authorized [id number] New Request 06/18/2024 06/18/2025 1 1 Reason for Visit * Reason Comments Follow-up Encounter Details Date Type Department Care Team (Latest Contact Info) Description 06/20/2024 11:00 AM EST Office Visit [facility] Pediatric Pulmonary - Medical [address] [place] [address] Alireza Torres MD [address] [facility] [address] [place] [phone] Moderate persistent asthma, uncomplicated Social History Tobacco Use Types Packs/Day Years [...] on file documented as of this encounter Last Filed Vital Signs Vital Sign Reading Time Taken Comments Blood Pressure - - Pulse 61 06/20/2024 9:58 AM EST Temperature 36.4 C (97.5 F) 06/20/2024 9:58 AM EST Respiratory Rate 16 06/20/2024 9:58 AM EST Oxygen Saturation - - Inhaled Oxygen Concentration - - Weight 77.6 kg (171 lb 1.2 oz) 06/20/2024 9:58 A M EST Height 170.6 cm (5' 7.15) 06/20/2024 9:58 AM ES T Body Mass Index 26.67 06/20/2024 9:58 AM EST documented in this encounter Plan of Treatment Upcoming Encounters Date Type Department Care Team (Late st Contact Info) Description 09/24/2024 8:30 AM EDT Office Visit [facility] ENT and Allergy - [address] [address] Alireza Torres MD [address] [facility] [address] [place] [address] Kamlesh Eubanks MD [address] [facility] [address] [place] [address] Scheduled Orders Name Type Priority Associated Diagnoses Orde r Schedule Spirometry Pre/Post Bronchodilator (PFT18) PFT Routine Moderate persistent asthma, uncomplicated Expected: 06/18/2024, Expires: 06/18/2025 Exhaled Nitric Oxide (FENO) Test (PFT58) PFT Routine Moderate persistent asthma, uncomplicated Expected: 06/18/2024, Expires: 06/18/2025 documented as of this encounter Visit Diagnoses Diagnosis Moderate persistent asthma, uncomplicated Unspecified asthma documented in this encounter Care Teams Balance Engineer Relationship Specialty Start Date End Date Christal Rico APRN [address] [place] [address] PCP - General Pediatrics 10/11/22 documented as of this encounter
--- OUTSIDE RECORDS SUMMARY | 2024-06-27 08:22 | XMS_ITS | Encounter Summary ---
Author Organization Health Address [address] [place] [address] Care Team Providers Care Joint Maker Machine Name Role Phone Christal Rico APRN Primary Care Provider Encounter Details Date Type Department Care Team (Late st Contact Info) Description 2004 Documentation Encounter [facility] V LCR CONVERSION [address] [place] [address] Neonatology, Lcr Ped Social History Tobacco Use Types Packs/Day Years Used Date Smoking Tobacco: Never Assessed Sex and Gender Information Value Date Recorded Sex Assigned at Not on file Gender Identity Not on file Sexual Orientation Not on file documented as of this encounter Discharge Summaries * Neonatology, Lcr Ped - 2004 12:00 PM EDT [facility] [address] [phone] NICU Discharge Result Page 1 [facility] Division of Neonatology Discharge Summary Patient: Mario Blanc Date of Discharge: 04 Status: Discharged Date of : 04 Mzqwty-gj-Lofu: 4 days Date of Admission: 04 Birthweight: 3592 gms GA by Dates: 41 wks Sex: Male One Minute : 9 GA by Exam: 40 wks Five Minute : 9 Mother: Cindy Blanc [address] [place] [address] Maternal History Blood Type: B Hepatitis: Negative Rh: Positive HIV: Negative VDRL: Negative Maternal/ Conditions Maternal/ Conditions: GBS- -GC Drugs and Medications: Pitocin Labor & Delivery Delivery Type: Admission Physical Growth Parameters: Weight: 3592 gms Length: 48.50 cms Head: 36.00 cms Patient #: [id number] UFL Page 2 From To Service General Pediatrics (4 Days Total) ................. 04 04 Unit Nursery (4 Days Total) .................... 04 04 Attending Physician Niranjan (4 Days Total) ........................... 04 04 Confirmed Diagnoses/ICD-9 Term AGA/V39.0 (4 Days Total) ............. 04 04 Nutrition Breast Milk (4 Days Total) ........................ 04 04 Growth Parameters Date Value Date Value Weight (gms) ......... 04 3592 3 04 3444 Length (cms) ......... 04 48.50 3 04 48.50 Head (cms) ........... 04 36.00 3 04 36.00 Discharge Physical Growth Parameters: Weight: 3444 gms Discharge Evaluations Hearing Exam: Exam passed. Referrals Follow-up Appointments: Dr. Óscar Goncalves [facility] [address] [address] delivery for arrest of dilatation. Circumcision heal ing well. Transcutaneous bili at discharge was 6.7mg/dl. Herb Ureña M.D. Clinical Tractor Engine Assembler Electronically signed by [facility] Interface at 10/03/2013 5:32 PM EDT documented in this encounter Plan of Treatment Upcoming Encounters Date Type Department Care Team (Late st Contact Info) Description 09/24/2024 8:30 AM EDT Office Visit [facility] ENT and Allergy - [address] [address] Alireza Torres MD [address] [facility] [address] [place] [address] Kamlesh Eubanks MD [address] [facility] [address] [place] [address] documented as of this encounter [...] documented as of this encounter Care Teams Joint Maker Machine Relationship Specialty Start Date End Date Christal Rico APRN [address] [place] [address] [place] [address] PCP - General Pediatrics 10/11/22 documented as of this encounter
--- OUTSIDE RECORDS SUMMARY | 2024-06-27 08:22 | XMS_ITS | Clinical Summary ---
Author Organization [facility] Address [place], [place] [address] Care Team Providers Care Thoracic Medicine Physician Name Role Phone Rodolfo Coreas MD Primary Care Provider [phone] Allergies Active Allergy Reactions Criticality Noted Date Comments Cats (Fur, Dander, Saliva) Hives 4 Grass Pollen Hives 03/06/2024 Ragweed Pollen Hives 03/06/2024 Medications EPINEPHrine (EPIPEN) 0.3 mg/0.3 mL auto-injector Inject 0.3 mg intramuscular. 3 Active budesonide (PULMiCORT) 1 mg/2 mL neb suspensionIndica tions:Allergic rhinitis due to other allergic trigger, unspecified seasonality 1 vial inhaled using a nebulizer 1-2 times daily 120 mL 11 4 Active fluticasone (50 mcg per actuation) nasal solution (FLONASE)Indicat ions:Environment al allergies Inhale 2 Sprays in both nostrils once daily. 48 g 3 5 Active loratadine (CLARITIN) 10 mg tabletIndication s:Environmental allergies Take 1 Tablet (10 mg) by mouth once daily. 90 Tablet 3 5 Active budesonide-formo teroL (Symbicort) 160-4.5 mcg/actuation (160-4.5 mcg each actuation) inhalerIndicatio ns:Moderate persistent asthma without complication Inhale 1 Puff by mouth two times daily. Take additional 1 puff each time with wheezing, shortness of breathe up to 8-10 puffs/day. 30.6 g 3 5 Active albuterol HFA (Ventolin HFA) 90 mcg/actuation inhalerIndicatio ns:Mild persistent asthma without complication Inhale 1-2 Puffs by mouth every 4 hours if needed for Shortness Of Breath. 36 g 3 5 Active Ventolin HFA 90 mcg/actuation inhaler Inhale 2-4 Puffs by mouth. 3 025 Discontin ued(Reord er (E-cancel not sent)) fluticasone (50 mcg per actuation) nasal solution (FLONASE) Inhale 2 Sprays to both nostrils once daily. 16 g 3 025 Discontin ued(Reord er (E-cancel not sent)) montelukast (SINGULAIR) 10 mg tabletIndication s:Allergic rhinitis due to other allergic trigger, unspecified seasonality Take 1 Tablet (10 mg) by mouth at bedtime. 30 Tablet 11 4 025 Discontin ued(*Kathleen ent states no longer taking) Symbicort 160-4.5 mcg/actuation (160-4.5 mcg each actuation) inhalerIndicatio ns:Moderate persistent asthma without complication Inhale 1 Puff by mouth two times daily. Take additional 1 puff each time with wheezing, shortness of breathe up to 8-10 puffs/day. 10.2 g 11 4 025 Discontin ued(Reord er (E-cancel not sent)) loratadine (CLARITIN) 10 mg tabletIndication s:Environmental allergies Take 1 Tablet (10 mg) by mouth once daily. 30 Tablet 4 025 Discontin ued(Reord er (E-cancel not sent)) Symbicort 160-4.5 mcg/actuation (160-4.5 mcg each actuation) inhalerIndicatio ns:Moderate persistent asthma without complication Inhale 1 Puff by mouth two times daily. Take additional 1 puff each time with wheezing, shortness of breathe up to 8-10 puffs/day. 30.6 g 3 5 025 Discontin ued(Reord er (E-cancel not sent)) Ventolin HFA 90 mcg/actuation inhalerIndicatio ns:Mild persistent asthma without complication Inhale 1-2 Puffs by mouth every 4 hours if needed for Shortness Of Breath. 36 g 3 5 025 Discontin ued(Reord er (E-cancel not sent)) Active Problems Problem Noted Date Diagnosed Date Vocal cord dysfunction 08/12/2023 Mild persistent asthma without complication 03/20 Overview (06/22/2024): Previous pulmonary consults in [place] 2022 due question psychogenic cough, vocal cord dysfunction in addition to persistent asthma. Environmental allergies 04/16/2023 Encounters Date Type Department Care Team Description 06/24/[address] [facility] [address] [place] [address] Rodolfo Coreas MD Medication Management (Symbicort 160-4.5 mcg/actuation (160-4.5 mcg each actuation) inhaler & Ventolin HFA 90 mcg/actuation inhaler) 06/23/2024 8:40 AM SENIOR PHP DEVELOPER Office Visit [facility] [address] [place] [address] Rodolfo Coreas MD Preoperative Exam (DOS: 06/27/2024 Septoplasty/Dr Coronado at [facility]) 06/23/2024 Travel 05/08/2024 Transcribe Orders [facility] Lung & Sleep [address] [facility] [address] [place] [address] Annita Cotter PA 05/08/[address] [facility] [address] [place] [address] Kulwinder Mercer MD Refill Request (Prednisone) 05/07/[address] [facility] [address] [place] [address] Rodolfo Coreas MD Error-please disregard 05/05/[address] [facility] [address] [place] [address] Rodolfo Coreas MD Ear Pain/problem 03/28/2024 3:50 PM CDT Ancillary Procedure [facility] [address] [facility] [address] [place] [address] 03/28/2024 3:20 PM CDT Office Visit [facility] Specialty [facility] [address] [facility] [address] [place] [address] Cristino Loyola MD Consult (Left thigh pain) 03/28/2024 Travel from Last 3 Months Immunizations Name Administration Dates Next Due COVID-19 VACCINE SPIKEVAX (M ODERNA 50MCG/0.5ML) 12YO+ PFS 03/08/2024 COVID-19 vaccine (Pfizer-Bio NTech 30mcg/0.3mL) PF, MDV 06/14/2021,10/20/2020,09/29/2020 SVzC-TfhT-DWS (Pediarix) 2004,2004,1 07/16/2003 DTaP-IPV (Kinrix) 12/11/2008 HIB PRP-OMP (PedvaxHIB) 05/09/2005,2004, HPV 9 (Gardasil 9) 01/03/2021,08/26/2020, 020 Hepatitis A (Peds) 01/09/2023,01/04/2022 INFLUENZA, IIV3 PF (AGE >= 6 MO) 03/08/2024 Influenza A (H1N1), Inactiva gee (Age >=3 Years) 05/22/2009 Influenza Virus, Unspecified 05/13/2022, 03/18/2020,03/20/2019,04/15,03/20/2017,03/30/2015,04/09/2014 ,05/02/2011,03/28/2010,05/09/2005,03/18 MMR, Unspecified 12/11/2008,05/09/2005 Meningococcal B 01/04/2022,01/03/2021 Meningococcal Vaccine (Menactra) 09/29/2015 Pneumococcal conj 13-Valent (Prevnar 13) 03/16/2005,2004,2004,05/16 Tdap, Unspecified 09/29/2015 Varicella Vaccine 12/11/2008,03/16/2005 Family History Medical History Relation Name Comments Good Health Father Good Health Mother Relation Name Status Comments Father Mother Social History Tobacco Use Types Packs/Day Years Used Date Smoking Tobacco: Never Smokeless Tobacco: Never Tobacco Cessation:Counseling Given: No Alcohol Use Standard Drinks/Week Comments Never 0 (1 standard drink = 0.6 oz pur e alcohol) [facility] Utilities Answer Date Recorded Do you have trouble paying f or utilities (for example, heat, electricity, water, phone)? Yes 08/09/2023 PHQ-2 Answer Date Recorded PHQ-2 TOTAL SCORE 0 03/06/2024 Social Connections Answer Date Recorded Do you often feel lonely or isolated from those around you? 0 08/09/2023 Financial Resource Strain Answer Date R ecorded Difficulty of Paying Living Expenses 2 08/09/2023 Difficulty of Paying Living Expenses 1 08/09/2023 Food Insecurity Answer Date Recorded Do you worry your food will run out before you are able to buy more? 1 08/09/2023 Transportation Needs Answer Date Record ed Does lack of transportation keep you from medica l appointments? 2 08/09/2023 Does lack of transportation keep you from work, meetings or getting things that you need? 1 08/09/2023 Housing Stability Answer Date Recorded What is your housing situation today? 1 08/09/2023 Sex and Gender Information Value Date Recorded Sex Assigned at Not on file Legal Sex Male 12:48 PM CDT Gender Identity Not on file Sexual Orientation Not on file Obstetrics History Last Filed Vital Signs Vital Sign Reading Time Taken Comments Blood Pressure 115/67 06/23/2024 8:45 AM SENIOR PHP DEVELOPER Pulse 83 06/23/2024 8:45 AM SENIOR PHP DEVELOPER Temperature 37 C (98.6 F) 03/29/2023 7:20 AM CDT Respiratory Rate - - Oxygen Saturation 98% 06/23/2024 8:45 AM SENIOR PHP DEVELOPER Inhaled Oxygen Concentration - - Weight 79.1 kg (174 lb 6.4 oz) 06/23/2024 8:45 A M SENIOR PHP DEVELOPER Height 168.9 cm (5' 6.5) 09/28/2023 2:48 PM CDT Body Mass Index - - Plan of Treatment Health Maintenance Due Date Last Done Comments Well Child Check for age 3-20 02/07/2007 Pneumococcal series for age 6-49 (1 of 1 - PPSV23) 2010 03/16/2005, 2004, 2004, Additional history exists HIV for age 15-65 2019 Hepatitis C screening for age 18-79 2022 BMI (ht and wt on same day) for age 18+ 09/27/2024 09/28/2023, 08/07/2023, 04/16/2023 Depression screening for age 12+ 03/06/2025 03/06/2024 Tetanus booster 09/28/2025 09/29/2015 Meningococcal series for age 11-21 Aged Out 09/29/2015 No longer eligible based on patient's age to complete this topic Tdap Completed 09/29/2015 HPV series for age 9-26 Completed 01/04/20 21, 08/26/2020, 12/17/2019 COVID-19 vaccine series Completed 03/08/20 24, 06/14/2021, 10/20/2020, Additional history exists Influenza for age 9-49 Completed 4, 05/13/2022, 03/18/2020, Additional history exists Procedures Procedure Name Priority Date/Time Associated Diagnosis Comments XR FEMUR 2 VIEWS LEFT Routine 03/28/2024 4:05 PM CDT Right thigh pain from Last 3 Months Results * XR FEMUR 2 VIEWS LEFT (03/28/2024 4:05 PM CDT) Anatomical Region Laterality Modality FEMURS, FEMUR L Digital Radiogra phy 04/02/2024 9:30 AM CDT Impressions 04/02/2024 9:30 AM CDT Normal exam. Dictated by Rich Núñez MD @ 04/02/2024 9:30:05 AM (Electronically Signed) Narrative 04/02/2024 9:30 AM CDT For Patients: As a result of the Cures Act, medical imaging exams and procedure reports are released immediately into your electronic medical record. You may view this report before your referring provider. If you have questions, please contact your health care provider. INDICATION: Left hip pain. TECHNIQUE: Two views of the left femur. FINDINGS: No left femur fracture. Hip and knee appear intact. No bone lesion. No soft tissue abnormality. Procedure Note Rich Núñez MD - 04/02/2024 For Patients: As a result of the Cures Act, medical imagingexams and procedure reports are released immediately into your electronicmedical record. You may view this report before your referring provider.If you have questions, please contact your health care provider. INDICATION: Left hip pain. TECHNIQUE: Two views of the left femur. FINDINGS: No left femur fracture. Hip and knee appear intact. No bone lesion. Nosoft tissue abnormality. IMPRESSION: Normal exam. Dictated by Rich Núñez MD @ 04/02/2024 9:30:05 AM (Electronically Signed) Cristino Loyola MD GENERAL IMAGING Final Result from Last 3 Months Insurance Care Teams Thoracic Medicine Physician Relationship Specialty Start Date End Date Rodolfo Coreas [place] [address] PCP - General Family Practice 04/17/23
[2024-06-27] MEDS: 0.9 % SODIUM CHLORIDE 500 ML 500 ML 100 ML IV (09:15)
[2024-06-27] MEDS: SODIUM CHLORIDE 0.9 % (FLUSH) 10 ML SYRINGE IVF (09:15)
[2024-06-27] MEDS: OXYMETAZOLINE 0.05% NASAL SPRAY 2 SPRAY NOSTRIL-B (09:52)
--- NOTE | 2024-06-27 10:14 | P.ANES_ITS ---
Anesthesia Charges Start Date/Time Anesthesia Start Date: 06/27/24 Anesthesia Start Time: 10:40 Stop Date/Time Anesthesia Stop Date: 06/27/24 Anesthesia Stop Time: 11:25 Coding CPT Codes CPT Codes: ANESTH NOSE/SINUS SURGERY - 25901 ([id number]) P2 - PATIENT W/MILD SYST DISEASE, QK - BOILER/CHILLER OPERATOR 2-4 CNCRNT ANES PROC, QX - ROOMS DIRECTOR SVC W/ MD MED DIRECTION
--- NOTE | 2024-06-27 10:14 | W.ANESCHARGE ---
Anesthesia Charges Start Date/Time Anesthesia Start Date: 06/27/24 Anesthesia Start Time: 10:40 Stop Date/Time Anesthesia Stop Date: 06/27/24 Anesthesia Stop Time: 11:25 Coding CPT Codes CPT Codes: ANESTH NOSE/SINUS SURGERY - 62885 ([id number]) P2 - PATIENT W/MILD SYST DISEASE, QK - MACHINE FEEDER RAW STOCK 2-4 CNCRNT ANES PROC, QX - PURIFYING PLANT OPERATOR SVC W/ MD MED DIRECTION
[2024-06-27] MEDS: COCAINE HCL 4 % 4 ML SOLUTION NOSTRIL-B (10:52)
[2024-06-27] MEDS: AYR SALINE NASAL GEL 1 APPLIC NOSTRIL-B (11:05)
[2024-06-27] MEDS: BUPIVACAINE 0.5%/EPINEPHRINE 0.9 MG (30.9 ML) INJECTION (11:08)
[2024-06-27] MEDS: MUPIROCIN 1 GM PACKET 1 APPLIC TOPICAL (11:09)
--- NOTE | 2024-06-27 11:47 | P.ANES_ITS ---
Anesthesia Charges Start Date/Time Anesthesia Start Date: 06/27/24 Anesthesia Start Time: 10:40 Stop Date/Time Anesthesia Stop Date: 06/27/24 Anesthesia Stop Time: 11:25 Coding CPT Codes CPT Codes: ANESTH NOSE/SINUS SURGERY - 20619 ([id number]) P2 - PATIENT W/MILD SYST DISEASE, QK - HR SPECIALIST 2-4 CNCRNT ANES PROC, QX - TUNA PURSE SEINER SVC W/ MD MED DIRECTION
--- NOTE | 2024-06-27 11:47 | W.ANESCHARGE ---
Anesthesia Charges Start Date/Time Anesthesia Start Date: 06/27/24 Anesthesia Start Time: 10:40 Stop Date/Time Anesthesia Stop Date: 06/27/24 Anesthesia Stop Time: 11:25 Coding CPT Codes CPT Codes: ANESTH NOSE/SINUS SURGERY - 80533 ([id number]) P2 - PATIENT W/MILD SYST DISEASE, QK - WELDER TECH 2-4 CNCRNT ANES PROC, QX - MANAGER INVESTIGATIONS SVC W/ MD MED DIRECTION
[2024-06-27] MEDS: ACETAMINOPHEN 325 MG TABLET PO (12:45)
--- NOTE | 2024-06-27 12:56 | P.ENTPROC_ITS ---
Procedure Note Date of procedure: 06/27/24 Procedure: Preop diagnosis nasal obstruction, deviated septum, left inferior turbinate hypertrophy, left middle turbinate abdiaziz bullosa Postoperative diagnosis same Procedure nasal septoplasty, endoscopic partial resection left middle turbinate abdiaziz bullosa, submucous partial resection left inferior turbinate Under general trach anesthesia patient was prepped draped usual fashion nose decongested and injected. A right hemitransfixion incision was made left anterior and posterior tunnels were created. A vertical incision was made through the cartilage and a right posterior tunnel created. Incision was made in the septal cartilage anterior to the bony cartilaginous junction and a cut made above and below the deflected portions of septum. A large piece of bone cartilage was resected. A piece was trimmed returned to intraseptal space. There is a left premaxillary wing deformity that was removed with a chisel. A stab incision was made in the anterior head of the left inferior turbinate a tunnel created with a Schleicher dissector. A conservative anterior submucous resection was performed and the Coblation 1 used to cauterize intramurally along the inferior 10%. The remainder procedure was done with the available assistance of a 0 degree endoscope. The left abdiaziz was incised along its inferolateral aspect and a small amount of bone resected. The remainder of the turbinate was then crushed with the Sreekanth forceps. The hemitransfixion was closed with 2 4-0 Vicryl sutures. Silastic stents were secured with 3-0 nylon and Merocel packing placed in the middle meatus on each side. The patient procedure well was taken recovery in satisfactory condition. Blood loss was less than 10 mL. Surgeon: Kenji Sanon MD
== END 2024-06-27 13:31 | disposition home or self-care (01) ==
LOC: OR 08:19
PROVIDERS: Visit Provider Otolaryngology
PROC: (CPT 31231; principal; 2024-06-27 09:45)
DX: J34.2 Deviated nasal septum (principal); J34.3 Hypertrophy of nasal turbinates
CPT/HCPCS: 30520; 30140; 31240; 00160; A9270; J0330; J1100; J2250; J2405; J2704; J3010; J3490; J7030